=== PATIENT | female | born 1985 | race Caucasian/White ===

== ENCOUNTER 2021-04-01 20:32 | Inpatient (IN) | payer OTHER ==
[~2021-04-01] VITALS: Ht 157.5 cm; Wt 67.1 kg
[2021-04-01] MEDS ORDERED: CARBOPROST TROMETHAMINE 250 MCG/ML AMPUL IM PRN (21:15)
[2021-04-01] MEDS ORDERED: METHYLERGONOVINE MALEATE 0.2 MG/ML IM PRN (21:15)
[2021-04-01] MEDS ORDERED: LIDOCAINE HCL 1% 20ML VIAL (Pyxis) INJ INFIL SCH (21:15)
[2021-04-01] MEDS ORDERED: NALOXONE HCL 0.4 MG/ML 1ML VIAL IM PRN (21:15)
[2021-04-01] MEDS ORDERED: BUTORPHANOL TARTRATE 2 MG/ML VIAL IV PRN (21:15)
[2021-04-01] MEDS ORDERED: DEXT 5%/LR + PITOCIN 20UNITS/L 1,000 ML IV SCH (21:15)
[2021-04-01] MEDS ORDERED: MISOPROSTOL 100MCG TABLET VG SCH (21:45)
[2021-04-01] MEDS: LACTATED RINGERS 1,000 ML IV SCH (21:55)
[2021-04-01 22:16] LABS: CLARITY URINE CLOUDY (CLEAR); COLOR URINE YELLOW (YELLOW); KETONES URINE NEGATIVE (NEGATIVE); LEUKOCYTE ESTERASE URINE NEGATIVE (NEGATIVE); NITRITE URINE NEGATIVE (NEGATIVE); OCCULT BLOOD URINE 2+ (NEGATIVE); PROTEIN URINE 2+ (NEGATIVE); SPECIFIC GRAVITY URINE 1.012 (1.005-1.030); UROBILINOGEN URINE 0.2 E.U./dL (0.2-1.0)
[2021-04-01 22:22] LABS: BASOPHILS % 0.2 % (0.0-2.0); EOSINOPHILS % 0.5 % (0.0-5.0); HEMATOCRIT. 30.1 % (36.0-48.0); HEMOGLOBIN. 10.5 g/dL (12.0-16.0); LYMPHOCYTES % 20.2 % (20.0-50.0); MEAN CORPUSCULAR HEMOGLOBIN 32.1 pg (28.0-32.0); MEAN CORPUSCULAR VOLUME 91.9 fL (81.0-99.0); MEAN PLATELET VOLUME 8.2 fl (7.4-10.4); MONOCYTES % 8.7 % (2.0-8.0); NEUTROPHILS % 70.4 % (40.0-76.0); PLATELET 229 x1000/uL (130-400); RED BLOOD CELL COUNT 3.27 mill/uL (4.2-5.4); RED CELL DISTRIBUTION WIDTH 12.9 % (11.6-14.6)
[2021-04-01 22:25] LABS: *AMPHETAMINES SCREEN URINE NEGATIVE (NEGATIVE); *BARBITURATES SCREEN URINE NEGATIVE (NEGATIVE); *BENZODIAZEPINES SCREEN URINE NEGATIVE (NEGATIVE)
[2021-04-01 22:26] LABS: *COCAINE SCREEN URINE NEGATIVE (NEGATIVE); CANNABINOID URINE SCREEN NEGATIVE (NEGATIVE); METHADONE URINE SCREEN NEGATIVE (NEGATIVE); OPIATES URINE SCREEN NEGATIVE (NEGATIVE); PHENCYCLIDINE URINE SCREEN NEGATIVE (NEGATIVE)
[2021-04-01 22:31] LABS: PARTIAL THROMBOPLASTIN TIME 28.2 sec (23.4-31.0); PROTHROMBIN TIME 10.3 sec (9.6-11.0)
[2021-04-01] MEDS ORDERED: FERR325T6 PO (22:34)
[2021-04-01] MEDS ORDERED: PREN-176 PO (22:34)
[2021-04-01 23:04] LABS: HEPATITIS B SURFACE ANTIGEN NEGATIVE
[2021-04-02] MEDS ORDERED: ROPIVACAINE HCL/PF EPIDURAL 200 ML EPI SCH (00:15)
[2021-04-02] MEDS: LACTATED RINGERS 1,000 ML IV SCH ×3 (02:42→12:04)
[2021-04-02] MEDS ORDERED: AMPICILLIN 2,000 MG in SODIUM CHLORIDE 0.9% 100 ML IV SCH (10:00)
[2021-04-02] MEDS ORDERED: ACETAMINOPHEN 500MG TABLET PO NR (10:00)
[2021-04-02] MEDS ORDERED: AMPICILLIN 2GM in NS 100ML 100 ML IV SCH (10:15)
[2021-04-02] MEDS ORDERED: HEMORRHOIDAL SUPP PR PRN (14:30)
[2021-04-02] MEDS ORDERED: IBUPROFEN 800MG TABLET PO PRN (14:30)
[2021-04-02] MEDS ORDERED: DIPHENHYDRAMINE 25MG CAPSULE PO PRN (14:30)
[2021-04-02] MEDS ORDERED: BENZOCAINE/LANOLIN/ALOE VERA SPRAY TOP PRN (14:30)
[2021-04-02] MEDS ORDERED: LANOLIN OINT 7GM TUBE TOP PRN (14:30)
[2021-04-02] MEDS ORDERED: BISACODYL 10MG SUPP PR PRN (14:30)
[2021-04-02] MEDS ORDERED: RHO(D) IMMUNE GLOBULIN 300 MCG/SYR IM PRN (14:30)
[2021-04-02] MEDS ORDERED: GLYCERIN/WITCH HAZEL LEAF MEDICATED PAD TOP PRN (14:30)
[2021-04-02] MEDS ORDERED: IBUPROFEN 400MG TABLET PO PRN (14:30)
[2021-04-02] MEDS ORDERED: ACETAMINOPHEN WITH CODEINE 300/30MG TABLET PO PRN (14:30)
[2021-04-02] MEDS ORDERED: DEXT 5%/LR + PITOCIN 20UNITS/L 1,000 ML IV SCH (15:03)
[2021-04-02 18:45] VITALS: BP 123/74
[2021-04-02 19:45] VITALS: BP 130/73
[2021-04-02] MEDS: DOCUSATE SODIUM 100MG CAPSULE PO SCH (22:36)
[2021-04-02] MEDS: SIMETHICONE 80MG TABLET CHEW PO SCH (22:38)
[2021-04-02] MEDS: MAGNESIUM/ALUMINUM HYDROXIDE/SIMETHICONE 30ML UDC PO SCH (22:39)
[2021-04-03] VITALS: BP 119/55
[2021-04-03 03:50] VITALS: BP 98/56
[2021-04-03] MEDS ORDERED: FERROUS SULFATE 325MG TABLET PO SCH (07:30)
[2021-04-03 08:00] VITALS: BP 117/73
[2021-04-03] MEDS ORDERED: PRENATAL VIT/FE FUMARATE/FA TABLET PO SCH (09:00)
[2021-04-03 09:11] LABS: BASOPHILS % 0.2 % (0.0-2.0); EOSINOPHILS % 0.7 % (0.0-5.0); HEMATOCRIT. 27.3 % (36.0-48.0); HEMOGLOBIN. 9.4 g/dL (12.0-16.0); LYMPHOCYTES % 14.4 % (20.0-50.0); MEAN CORPUSCULAR HEMOGLOBIN 31.8 pg (28.0-32.0); MEAN CORPUSCULAR VOLUME 92.9 fL (81.0-99.0); MEAN PLATELET VOLUME 8.4 fl (7.4-10.4); MONOCYTES % 6.3 % (2.0-8.0); NEUTROPHILS % 78.4 % (40.0-76.0); PLATELET 188 x1000/uL (130-400); RED BLOOD CELL COUNT 2.94 mill/uL (4.2-5.4); RED CELL DISTRIBUTION WIDTH 13.2 % (11.6-14.6)
[2021-04-03 19:30] VITALS: BP 113/75
[2021-04-03] MEDS: MAGNESIUM/ALUMINUM HYDROXIDE/SIMETHICONE 30ML UDC PO SCH (21:36)
[2021-04-03] MEDS: SIMETHICONE 80MG TABLET CHEW PO SCH (21:36)
[2021-04-03] MEDS: DOCUSATE SODIUM 100MG CAPSULE PO SCH (21:36)
[2021-04-04 04:00] VITALS: BP 127/82
[2021-04-04 08:00] VITALS: BP 136/88
[2021-04-04 09:04] LABS: BASOPHILS % 0.3 % (0.0-2.0); EOSINOPHILS % 1.7 % (0.0-5.0); HEMOGLOBIN. 9.9 g/dL (12.0-16.0); LYMPHOCYTES % 19.1 % (20.0-50.0); MEAN CORPUSCULAR HEMOGLOBIN 31.5 pg (28.0-32.0); MEAN CORPUSCULAR VOLUME 91.9 fL (81.0-99.0); MONOCYTES % 5.2 % (2.0-8.0); NEUTROPHILS % 73.7 % (40.0-76.0); PLATELET 232 x1000/uL (130-400); RED BLOOD CELL COUNT 3.15 mill/uL (4.2-5.4); RED CELL DISTRIBUTION WIDTH 13.3 % (11.6-14.6)
== END 2021-04-04 18:33 | disposition home or self-care (01) | DRG 560 ==
LOC: 8 EST LDRP 20:32 → 8EST 04-02 18:25
PROVIDERS: ADMIT Obstetrics & Gynecology; ATTEND Obstetrics & Gynecology
PROC: 10E0XZZ Delivery of Products of Conception, External Approach (ICD-10-PCS; principal; 2021-04-02)
PROC: 0W8NXZZ Division of Female Perineum, External Approach (ICD-10-PCS; 2021-04-02)
DX: O77.0 Labor and delivery complicated by meconium in amniotic fluid (principal); Z37.0 Single live birth; Z20.822 Contact with and (suspected) exposure to COVID-19; Z3A.37 37 weeks gestation of pregnancy
CPT/HCPCS: 36415; 76805; 76818; 80305; 81003; 85025; 86592; 86703; 86762; 86850; 86900; 87340; 87426; 99281; G0378; J0290; J0595; J2590; J2795; J3490; J7050; A4315